=== PATIENT | female | born 1935 | race Caucasian/White ===

== ENCOUNTER → 2017-10-08 | Day surgery (SDC) | payer MEDICARE, BC ==
[~2017-10-08] MED LIST: LIDOCAINE 1% PF 2 ML VIAL. ID; MIDAZOLAM HCL/PF 2 MG/2 ML VIAL. IV; PROPOFOL 20 ML IV; fentaNYL PF VIAL 100 MCG/2 ML VIAL IV
[2017-10-08] MEDS: IV RINGERS,LACTATED 1000ML 1,000 ML IV (12:32)
== END | disposition home or self-care (01) ==
LOC: ENDOS 12:03
DX: K22.2 Esophageal obstruction (principal); K21.9 Gastro-esophageal reflux disease without esophagitis; K29.50 Unspecified chronic gastritis without bleeding; E78.00 Pure hypercholesterolemia, unspecified; J44.9 Chronic obstructive pulmonary disease, unspecified; G47.30 Sleep apnea, unspecified; Z87.11 Personal history of peptic ulcer disease; Z85.828 Personal history of other malignant neoplasm of skin; I11.9 Hypertensive heart disease without heart failure; Z88.8 Allergy status to other drugs, medicaments and biological substances; M19.90 Unspecified osteoarthritis, unspecified site; Z86.010 Personal history of colon polyps; Z82.49 Family history of ischemic heart disease and other diseases of the circulatory system; Z83.3 Family history of diabetes mellitus; Z80.0 Family history of malignant neoplasm of digestive organs; F17.210 Nicotine dependence, cigarettes, uncomplicated; Z79.899 Other long term (current) drug therapy; Z90.710 Acquired absence of both cervix and uterus; Z98.890 Other specified postprocedural states
CPT/HCPCS: 43239; 88305; J2704

== ENCOUNTER → 2020-07-03 | Outpatient (CLI) | payer MEDICARE, BC ==
[2017-10-08 14:00] VITALS: BP 144/64
[~2020-07-03] MED LIST changes: +APIX5TAB PO; +CARV12.511 PO; +FLUT1DIS IH; +HYDR12.58 PO; -LIDOCAINE 1% PF 2 ML VIAL. ID; -MIDAZOLAM HCL/PF 2 MG/2 ML VIAL. IV; +PRAV40TA2 PO; -PROPOFOL 20 ML IV; +RAMI10CA53 PO; +RIVA20TA2 PO; +SOTA120T PO; +TOLT2TAB4 PO; +TRAM50TA PO; +TRAZ-118 PO; +[UNRECOGNIZED DRUG - OTHER]; -fentaNYL PF VIAL 100 MCG/2 ML VIAL IV
--- NOTE | 2020-07-03 10:53 | KCIC ---
EXAMINATION: Magnetic resonance imaging (MRI) of the lumbar spine without contrast 07/03/2020 9:30 AM HISTORY: Low back pain. TECHNIQUE: Multiplanar multi-weighted MRI of the lumbar spine was performed without intravenous contrast using the standard lumbar spine protocol. Contrast information: None administered. COMPARISON: CT lumbar spine 04/19/2009. FINDINGS: There is levoconvex scoliosis of the lumbar spine with apex levocurvature at L3-L4. There is minimal retrolisthesis of T12 on L1, L1 on L2 and L2 on L3. Minimal antral listhesis of L3 on L4. Minimal antral stasis of L5 on S1. Conus medullaris terminates at L1-L2. Distal spinal cord signal intensity is normal in all sequences with limited evaluation of the cord at the T9-T10 level. There is moderate disc height loss at L1-L2 and L2-L3 with mild disc height loss at L3-L4 and L4-L5. Minimal fluid and edema noted within the disc space at L4-L5. No significant marrow edema is identified. Endplate irregularity noted at T12-L1, L1-L2, L2-3 and L3-L4 which may reflect advanced degenerative disc disease. Unilateral right-sided pedicle screws identified at L3-L4. Abdominal aorta is normal in caliber. Simple cyst identified in the posterior interpolar left kidney measuring 1.2 cm. 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 Visualized portions of the sacrum appear intact. T12-L1: There is a posterior disc osteophyte complex. Mild facet arthropathy. Mild left neuroforaminal stenosis. No spinal canal stenosis. L1-L2: There is a right far lateral disc protrusion. Moderate right and mild left facet arthropathy. Severe right and [id number] left neuroforaminal stenosis. Mild spinal canal stenosis. L2-L3: There is a moderate disc bulge asymmetric to the right. Mild facet arthropathy. Minimal infolding. Severe right and moderate left neuroforaminal stenosis. Mild spinal canal stenosis with narrowing the right lateral recess. L3-L4: There is moderate disc bulge. Severe facet arthropathy, right greater than left. Severe right and moderate left neuroforaminal stenosis. Right partial laminectomy changes are identified decompressed the spinal canal and right lateral recess. Mild residual right lateral recess stenosis. L4-L5: There is a disc bulge. Moderate to severe facet arthropathy. There is a anteriorly projecting left synovial cyst measuring 10 x 10 mm x 12 mm resulting in left lateral recess stenosis. Mild spinal canal stenosis. L5-S1: There is a circumferential disc bulge. Severe left facet arthropathy. Mild right facet arthropathy. Left hemilaminectomy changes are identified. No residual spinal canal stenosis. Moderate severe left neuroforaminal stenosis. IMPRESSION: 1. 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 2. There is levoconvex scoliosis of the lumbar spine with apex levocurvature at L3-L4. Multilevel spondylolisthesis noted. 3. There is a anteriorly projecting left synovial cyst at L4-L5 resulting in left lateral recess stenosis. 4. 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 Recommend followup by ultrasound in 2 years. This recommendation follows ACR consensus guidelines: White Paper of the ACR Incidental Findings Committee II on Vascular Findings. J Am Kenia Radiol 2013; 10:789-794. Electronically signed by: Pat Barragan MD (07/03/2020 10:50 AM) ALIN
== END ==
LOC: KCIC MRI 08:52
PROVIDERS: ATTEND Physician Assistant
DX: M47.817 Spondylosis without myelopathy or radiculopathy, lumbosacral region (principal); M48.061 Spinal stenosis, lumbar region without neurogenic claudication; M43.16 Spondylolisthesis, lumbar region; M41.86 Other forms of scoliosis, lumbar region; G89.29 Other chronic pain
CPT/HCPCS: 72148